=== PATIENT | male | born 1965 | race Caucasian/White ===

== ENCOUNTER 2016-03-16 23:13 | Day surgery (SDC) | payer OTHER ==
[2016-03-16 23:15] VITALS: BP 139/91; PULSE 92; RESP 18; TEMP 98.2; O2SAT 96
[2016-03-16 23:35] VITALS: BP 129/67; PULSE 89; RESP 18; TEMP 98.7; O2SAT 96
--- NOTE | 2016-03-16 23:55 | PD ---
HPI Chief Complaint: Foreign Body Time Seen by Provider: 23:24 Travel History International Travel<30 days: No Contact w/Intl Traveler<30days: No Traveled to known affect area: No History of Present Illness HPI The patient is a 50-year-old male who presents emergency department for a food bolus impaction. The patient states he was eating prime rib approximately one and a half hours prior to arrival, at 10 PM, when he suddenly had some substernal chest discomfort. The patient feels like he has a food bolus impaction in the esophagus. The patient has a history of similar symptoms in July and underwent endoscopy in [place], [place], where he was on vacation. The patient states he had a repeat endoscopy performed by his rug shampooer in [place], [place], where he lives. The patient denies any known history of strictures or esophageal rings. The patient states she has difficulty swallowing his saliva, has to continuously spit up saliva, but denies any shortness of breath. Symptoms are moderate, similar to his previous esophageal food bolus impaction, and there are no current alleviating factors. The patient does have a history of ITP but denies taking any medications on a daily basis. PFSH Past Medical History Narrative Medical ITP, previous food bolus impaction Diminished Hearing: No Medical other: Yes (ITP) Past Surgical History Narrative Surgical Facial surgery, knee surgery, endoscopy Other Surgery: Yes (EGD with food extraction) Social History Alcohol Use: Yes (daily ETOH) Tobacco Use: No Substance Use: No Allergies-Medications (Allergen,Severity, Reaction): Coded Allergies: Penicillin (Verified Allergy, Unknown, 03/16/16) Review of Systems Except as stated in HPI: all other systems reviewed are Neg General / Constitutional: No: Fever HENT: No: Lightheadedness Cardiovascular: Positive: Chest Pain or Discomfort (secondary to food bolus impaction per patient's report) Respiratory: No: Shortness of Breath Gastrointestinal: Positive: Other (as noted in the history of present illness) , No: Nausea, Vomiting, Abdominal Pain Physical Exam Narrative GENERAL: Awake, alert, pleasant 50-year-old male who appears his stated age and is in no acute respiratory distress. Patient is sitting upright, spitting into a basin. SKIN: Warm and dry. HEAD: Atraumatic. Normocephalic. EYES: Pupils equal and round. No scleral icterus. No injection or drainage. ENT: No nasal bleeding or discharge. Mucous membranes pink and moist. NECK: Trachea midline. No JVD. CARDIOVASCULAR: Regular rate and rhythm. No murmur appreciated. RESPIRATORY: No accessory muscle use. Clear to auscultation. Breath sounds equal bilaterally. GASTROINTESTINAL: Abdomen soft, no rebound tenderness. MUSCULOSKELETAL: No obvious deformities. No clubbing. No cyanosis. No edema. NEUROLOGICAL: Awake and alert. No obvious cranial nerve deficits. Motor grossly within normal limits. Normal speech. PSYCHIATRIC: Appropriate mood and affect; insight and judgment normal. Data Data Last Documented VS Vital Signs Date Time Temp Pulse Resp B/P Pulse Ox O2 Delivery O2 Flow Rate FiO2 03/17/16 00:13 81 18 116/59 95 Room Air 03/16/16 23:35 98.7 Orders Electrocardiogram (03/16/16 ) Chest, Single Ap (03/16/16 ) Complete Blood Count With Diff (03/16/16 23:47) Basic Metabolic Panel (Bmp) (03/16/16 23:47) Act Partial Throm Time (Ptt) (03/16/16 23:47) Prothrombin Time / Inr (Pt) (03/16/16 23:47) Glucagon Inj (Glucagon Inj) (03/17/16 00:00) Admit Order (Ed Use Only) (03/17/16 00:53) Labs Laboratory Tests Test 03/16/16 23:35 White Blood Count 5.9 TH/MM3 Red Blood Count 4.82 MIL/MM3 Hemoglobin 15.6 GM/DL Hematocrit 44.7 % Mean Corpuscular Volume 92.9 FL Mean Corpuscular Hemoglobin 32.5 PG Mean Corpuscular Hemoglobin 35.0 % Concent Red Cell Distribution Width 12.9 % Platelet Count 142 TH/MM3 Mean Platelet Volume 6.8 FL Neutrophils (%) (Auto) 51.2 % Lymphocytes (%) (Auto) 26.2 % Monocytes (%) (Auto) 6.2 % Eosinophils (%) (Auto) 16.1 % Basophils (%) (Auto) 0.3 % Neutrophils # (Auto) 3.0 TH/MM3 Lymphocytes # (Auto) 1.5 TH/MM3 Monocytes # (Auto) 0.4 TH/MM3 Eosinophils # (Auto) 1.0 TH/MM3 Basophils # (Auto) 0.0 TH/MM3 CBC Comment DIFF FINAL Differential Comment Prothrombin Time 10.6 SEC Prothromb Time International 1.0 RATIO Ratio Activated Partial 24.5 SEC Thromboplast Time Sodium Level 140 MEQ/L Potassium Level 3.5 MEQ/L Chloride Level 105 MEQ/L Carbon Dioxide Level 24.2 MEQ/L Anion Gap 11 MEQ/L Blood Urea Nitrogen 14 MG/DL Creatinine 1.00 MG/DL Estimat Glomerular Filtration 79 ML/MIN Rate Random Glucose 90 MG/DL Calcium Level 8.4 MG/DL [facility] Medical Decision Making Medical Screen Exam Complete: Yes Emergency Medical Condition: Yes Medical Record Reviewed: Yes Interpretation(s) EKG reveals normal sinus rhythm with a rate 83. Nonspecific T wave changes. Laboratory Tests Test 03/16/16 23:35 White Blood Count 5.9 TH/MM3 Red Blood Count 4.82 MIL/MM3 Hemoglobin 15.6 GM/DL Hematocrit 44.7 % Mean Corpuscular Volume 92.9 FL Mean Corpuscular Hemoglobin 32.5 PG Mean Corpuscular Hemoglobin 35.0 % Concent Red Cell Distribution Width 12.9 % Platelet Count 142 TH/MM3 Mean Platelet Volume 6.8 FL Neutrophils (%) (Auto) 51.2 % Lymphocytes (%) (Auto) 26.2 % Monocytes (%) (Auto) 6.2 % Eosinophils (%) (Auto) 16.1 % Basophils (%) (Auto) 0.3 % Neutrophils # (Auto) 3.0 TH/MM3 Lymphocytes # (Auto) 1.5 TH/MM3 Monocytes # (Auto) 0.4 TH/MM3 Eosinophils # (Auto) 1.0 TH/MM3 Basophils # (Auto) 0.0 TH/MM3 CBC Comment DIFF FINAL Differential Comment Prothrombin Time 10.6 SEC Prothromb Time International 1.0 RATIO Ratio Activated Partial 24.5 SEC Thromboplast Time Sodium Level 140 MEQ/L Potassium Level 3.5 MEQ/L Chloride Level 105 MEQ/L Carbon Dioxide Level 24.2 MEQ/L Anion Gap 11 MEQ/L Blood Urea Nitrogen 14 MG/DL Creatinine 1.00 MG/DL Estimat Glomerular Filtration 79 ML/MIN Rate Random Glucose 90 MG/DL Calcium Level 8.4 MG/DL Differential Diagnosis Differential diagnosis includes esophageal food bolus impaction, esophageal stricture, esophageal ring, GERD, gastritis, esophagitis, pneumomediastinum, Boerhaave syndrome. Narrative Course IV was established, labs are drawn and sent, and the patient was placed on cardiac telemetry monitoring and continuous pulse oximetry monitoring. EKG was ordered and interpreted. Chest x-ray was ordered. The patient was administered glucagon 1 mg intravenously. Chest x-rays unremarkable. Labs are unremarkable. The patient was administered glucagon and then was given a by mouth challenge. The patient continued to spit up, did not feel like he was passing the water passed the obstruction. Therefore, the rug shampooer on- call, Dr. Gifford, was paged at 12:42 AM. The patient will be kept nothing by mouth for EGD in the morning. Physician Communication Physician Communication A call to the on-call rug shampooer, Dr. Gifford, was placed at 12:42 AM. After discussion it was agreed the patient will go to for endoscopy in the morning. The patient will be 23 hour observation to same-day care. Diagnosis Primary Impression: Esophageal obstruction due to food impaction Admitting Information Admitting Physician Requests: Observation Condition: Stable Eliseo Sepulveda MD Mar 16, 2016 23:55
[2016-03-17] VITALS (8 sets, daily range): BP systolic 111–142; BP diastolic 59–80; PULSE 62–98; RESP 16–18; TEMP 98; O2SAT 93–99
[2016-03-17] MEDS ORDERED: GLUCAGON 1 MG/ML VIAL IV PUSH ONE
[2016-03-17 00:12] LABS: BASOPHIL % 0.3 % (0.0-2.0); EOSINOPHIL % 16.1 % (0.0-4.0); HEMATOCRIT 44.7 % (39.0-51.0); HEMO FLAGS DIFF FINAL; LYMPH % 26.2 % (9.0-44.0); LYMPHOCYTE # 1.5 TH/MM3 (1.0-4.8); MEAN CELL VOLUME 92.9 FL (80.0-100.0); MEAN CORPUSCULAR HEMOGLOBIN 32.5 PG (27.0-34.0); MONO % 6.2 % (0.0-8.0); NEUT % 51.2 % (16.0-70.0); PLATELET COUNT 142 TH/MM3 (150-450); RED BLOOD COUNT 4.82 MIL/MM3 (4.50-5.90); RED CELL DISTRIBUTION WIDTH 12.9 % (11.6-17.2); WHITE BLOOD COUNT 5.9 TH/MM3 (4.0-11.0)
[2016-03-17 00:24] LABS: APTT (PATIENT) 24.5 SEC (24.3-30.1); PROTHROMBIN TIME - PATIENT 10.6 SEC (9.8-11.6)
[2016-03-17 00:29] LABS: BICARBONATE 24.2 MEQ/L (21.0-32.0); POTASSIUM 3.5 MEQ/L (3.5-5.1)
--- NOTE | 2016-03-17 00:37 | RADRPT ---
EXAM DATE/TIME: 03/17/2016 00:19 [facility] COMPARISON: No previous studies available for comparison. INDICATIONS : Shortness of breath. Pre-op for GI lab, endoscopy for food foreign body. MEDICAL HISTORY : None. SURGICAL HISTORY : None. ENCOUNTER: Initial ACUITY: 1 day PAIN SCORE: 0/10 LOCATION: Bilateral chest FINDINGS: A single view of the chest demonstrates the lungs to be symmetrically aerated without evidence of mas s, infiltrate or effusion. The cardiomediastinal contours are unremarkable. Osseous structures are intact. CONCLUSION: No acute disease. Jose Toth MD on March 17, 2016 at 0:35 Board Certified Radiologist. This report was verified electronically.
[2016-03-17] MEDS ORDERED: SODIUM CHLOR 0.9% 1000 ML INJ 1,000 ML IV SCH (01:45)
[2016-03-17] MEDS ORDERED: GLUCAGON 1 MG/ML VIAL IV ONE (09:00)
[2016-03-17] MEDS ORDERED: PROPOFOL 200 MG/20 ML AMP IV ONE (09:00)
--- NOTE | 2016-03-17 09:27 | MB ---
cc: ROCHELLE VILLAFUERTE M.D., [place] DATE OF CONSULTATION 03/17/2016 REQUESTING PHYSICIAN Consult requested by Dr. Eliseo Sepulveda in the emergency room. REASON FOR CONSULTATION Esophageal foreign body. HISTORY OF PRESENT ILLNESS Mr. Robledo is a 50-year-old gentleman who came in, stated he was eating prime rib for dinner and he felt that it got stuck in his lower esophagus. He is unable to swallow his saliva. He had a similar presentation in July of 2015 when he was in [place]. At that time he had an endoscopy done which did not reveal any esophageal strictures or rings. He says in the interim he has had no problems. He does not have any reflux disease but currently is unable to swallow his saliva. PAST MEDICAL HISTORY ITP. PAST SURGICAL HISTORY 1. Knee surgery. 2. Facial surgery. 3. Endoscopy. SOCIAL HISTORY Drinks alcohol. No tobacco. ALLERGIES PENICILLIN. REVIEW OF SYSTEMS Unable to swallow his saliva. PHYSICAL EXAMINATION GENERAL: A well-nourished man in no apparent distress. VITALS: Stable. HEAD AND NECK EXAMINATION: Anicteric sclerae. CHEST: Bilateral air entry with rales. ABDOMEN: Soft, nontender. No hepatosplenomegaly. Bowel sounds are present. HEAT WELDER PLASTICS: Exam is nonfocal. RECTAL: Exam deferred at this time. LABORATORY DATA Labs reveal a hemoglobin of 15.6. INR is 1. Creatinine is 1. IMPRESSION Esophageal foreign body. RECOMMENDATIONS 1. Leave n.p.o. with IV fluid. 2. EGD with foreign body removal as soon as possible. Thank you for this referral. MD EDUIN Lyons/PJ /8:58 AM /9:24 AM
[2016-03-17] MEDS ORDERED: DO NOT ADM ANY ANTICOAGULANT DRUGS XX PRN (10:15)
[2016-03-17] MEDS ORDERED: PANTOPRAZOLE SOD 20 MG DELAYED RELEASE TAB PO SCH (11:00)
--- NOTE | 2016-03-17 21:01 | EKG ---
Date Performed: 03/16/2016 Time Performed: 23:44:44 PTAGE: 50 years EKG: Sinus rhythm MODERATE INTRAVENTRICULAR CONDUCTION DELAY NONSPECIFIC T-WAVE ABNORMALITY BORDERLINE ECG NO PREVIOUS TRACING DOCTOR: Kody Thompson Interpretating Date/Time 03/17/2016 20:59:35
== END 2016-03-17 | disposition home or self-care (01) ==
LOC: NEPE 23:13 → HSDC 03-17 00:54 → NEDA 03-17 00:54 → HSDC 03-17 08:13
PROVIDERS: ATTEND Internal Medicine Gastroenterology
DX: T18.108A Unspecified foreign body in esophagus causing other injury, initial encounter (principal); K22.2 Esophageal obstruction; K20.9 Esophagitis, unspecified; K29.50 Unspecified chronic gastritis without bleeding; R07.89 Other chest pain; R06.02 Shortness of breath; D69.3 Immune thrombocytopenic purpura; Z88.0 Allergy status to penicillin
CPT/HCPCS: 00740; 43239; 43247; 71010; 80048; 85025; 85610; 85730; 88305; 88312; 93005; 96374; 99284; J1610; J7030